=== PATIENT | female | born 1990 | race Caucasian/White ===

== ENCOUNTER → 2017-09-30 | Outpatient (CLI) | payer OTHER ==
[~2017-09-30] VITALS: Ht 175.3 cm; Wt 58.5 kg
[~2017-09-30] MED LIST: ADVIL,NUPRIN,M200 MG PO; EXCEDRIN EXTRA1 EACH PO; FERROCITE324 MG PO; FOLIC ACID; LEVAQUIN750 MG PO; MOTRIN400 MG PO; MOTRIN600 MG PO; NORCO 10/3251 TABLET PO; PERCOCET 5/31 TABLET PO; PROAIR HFA8.5 GM IH; ROBITUSSIN AC,T10 ML PO; VALIUM5 MG PO; WOMENS STOOL S100 MG PO; XANAX0.25 MG PO
[2017-09-30 07:15] LABS: HEMATOCRIT 38.1 % (36.0-46.0); MCV 83.6 FL (83-99)
== END | disposition home or self-care (01) ==
LOC: AMB 06:29
PROVIDERS: Internal Medicine
DX: K51.20 Ulcerative (chronic) proctitis without complications (principal); Z87.19 Personal history of other diseases of the digestive system; M54.5 Low back pain; E66.9 Obesity, unspecified; Z68.33 Body mass index [BMI] 33.0-33.9, adult; Z98.51 Tubal ligation status; Z80.3 Family history of malignant neoplasm of breast; Z81.1 Family history of alcohol abuse and dependence; Z82.0 Family history of epilepsy and other diseases of the nervous system; Z83.3 Family history of diabetes mellitus
CPT/HCPCS: 85014; 85018; 88305

== ENCOUNTER 2017-12-02 14:49 | Emergency (ER) | payer OTHER ==
[~2017-12-02] VITALS: Ht 175.3 cm; Wt 103.0 kg
[2017-12-02] MEDS ORDERED: FLEXERIL10 MG PO (16:12)
[2017-12-02 16:31] VITALS: BP 129/94
== END 2017-12-02 16:32 | disposition home or self-care (01) ==
LOC: EME 14:49
DX: S39.012A Strain of muscle, fascia and tendon of lower back, initial encounter (principal); S16.1XXA Strain of muscle, fascia and tendon at neck level, initial encounter; S06.0X0A Concussion without loss of consciousness, initial encounter; V49.40XA Driver injured in collision with unspecified motor vehicles in traffic accident, initial encounter; Y92.410 Unspecified street and highway as the place of occurrence of the external cause
CPT/HCPCS: 72110; 81025; 99281; 99284

== ENCOUNTER 2017-12-04 00:28 | Emergency (ER) | payer OTHER ==
[~2017-12-04] VITALS: Ht 175.3 cm; Wt 105.0 kg
[~2017-12-04 00:28] MED LIST changes: +FLEXERIL10 MG PO
[2017-12-04 00:30] VITALS: BP 109/80
[2017-12-04] MEDS ORDERED: PERCOCET 5/31 TABLET PO (02:36)
== END 2017-12-04 02:52 | disposition home or self-care (01) ==
LOC: EME 00:28
PROC: 2W3DX1Z Immobilization of Left Lower Arm using Splint (ICD-10-PCS; principal; 2017-12-04)
DX: S52.502A Unspecified fracture of the lower end of left radius, initial encounter for closed fracture (principal); S00.83XA Contusion of other part of head, initial encounter; W18.30XA Fall on same level, unspecified, initial encounter; Y93.41 Activity, dancing
CPT/HCPCS: 70450; 70486; 73110; 99281; 99284

== ENCOUNTER 2018-03-14 07:19 | Emergency (ER) | payer OTHER ==
[~2018-03-14] VITALS: Ht 175.3 cm; Wt 106.2 kg
[2018-03-14] MEDS ORDERED: AUGMENTIN875 MG PO (08:23)
[2018-03-14 09:09] VITALS: BP 127/86
== END 2018-03-14 09:09 | disposition home or self-care (01) ==
LOC: EME 07:19
DX: J02.0 Streptococcal pharyngitis (principal)
CPT/HCPCS: 87081; 87651 90; J1100